=== PATIENT | male | born 1995 | race Hispanic/Latino ===

== ENCOUNTER 2016-11-26 23:47 | Emergency (ER) | payer SELFPAY ==
[~2016-11-26] VITALS: Ht 170.2 cm; Wt 68.0 kg
[~2016-11-26 23:47] MED LIST: NS IV 1000 ML 2,000 ML ONE
--- NOTE | 2016-11-27 00:16 | ED EENT ---
History of Present Illness General Stated Complaint: CHEMICAL IN EYE Source: patient, family Exam Limitations: language barrier ([place]an) History of Present Illness Time seen by provider: 00:09 Initial Comments Patient presents to ER by private conveyance and has a family member giving his Scottish interpretation. Approximately half an hour ago he set a jug of household bleach down on the floor and had the catheter off and splashed straight up and sprayed several droplets in that his eye on both sides. Left eye more than right eye. He is having a burning sensation but no blurry vision or double vision. He has not done anything for to come straight to the ER. Allergies and Home Medications Allergies Coded Allergies: No Known Drug Allergies (Unverified , 11/27/16) Review of Systems Constitutional: No chills, No diaphoresis, No malaise Eyes: Denies Blindness, Denies Blurred Vision, Denies Drainage, Denies Foreign Body Sensation, Pain, Denies Photophobia Ears: See HPI, Denies Dizziness, Denies Previous Injury Nose: denies epistaxis, denies pain Mouth: denies clots, denies loose teeth Throat: denies pain, denies swelling, denies discharge Respiratory: No cough, No short of breath Cardiovascular: No chest pain, No palpitations Gastrointestinal: No abdominal pain, No constipation, No diarrhea, No nausea Musculoskeletal: No back pain, No joint pain Skin: No pruritus, No rash Neurological: Denies Headache, Denies Numbness, Denies Paresthesia, Denies Pre- Existing Deficit Past Wbffyne-Sjdksf-Chaije Hx Patient Social History Recent Foreign Travel: No Contact w/Someone Who Travel: No Visual Acuity : Eye Location: Bilaterally Vision Acuity Degree: 20/20 Physical Exam Vital Signs Vital Sign - Last 12Hours 11/26/16 23:55 Temp 97.8 Pulse 127 Resp 20 B/P (MAP) 133/73 Pulse Ox 100 O2 Delivery Room Air O2 Flow Rate 97.00 General Appearance: WD/WN, mild distress Eyes: bilateral eye PERRL, bilateral eye EOMI, bilateral eye lid inflammation, bilateral eye other (bilateral conjunctival erythema and injection. Wood's lamp with fluoresceins stain negative for ulceration, foreign bodies or dendritic patterns.) Ears: bilateral ear auricle normal, bilateral ear canal normal, bilateral ear TM normal Nose: normal inspection, No active bleeding, No discharge Neck: non-tender, full range of motion, supple, normal inspection Cardiovascular: normal peripheral pulses, regular rate, rhythm Respiratory: lungs clear, normal breath sounds Gastrointestinal: non tender, soft Neurologic/Psychiatric: alert, oriented x 3 Skin: normal color, warm/dry Progress/Results/Core Measures Results/Orders My Orders Orders - NIKKI ROMERO Iv 1000 Ml (Sodium Chloride 0.9%) (11/26/16 23:47) Medications Given in ED Current Medications Medications Dose Ordered Sig/Marty Route Start Time Stop Time Status Last Admin Dose Admin Sodium Chloride 2,000 ml @ ud STK-MED ONCE .ROUTE 11/26/16 23:47 11/26/16 23:54 DC 11/27/16 00:01 2,000 MLS/HR Vital Signs/I&O Vital Sign - Last 12Hours 11/26/16 11/26/16 23:55 23:55 Temp 97.8 Pulse 127 Resp 20 B/P (MAP) 133/73 Pulse Ox 100 O2 Delivery Room Air Room Air O2 Flow Rate 97.00 Consults Consults : Consults Notes [facility] poison control recommends that we flushed his eyes with copious amounts of normal saline. After he is done that and allow him to sit for about 15 minutes and checked the pH. If it is approaching normal then we can let him go. If it is still off that we should re-flush copiously and then let him set 15 more minutes and rechecked him. They will call back to check on him in the low back. 0115: Left a voicemail to update poison control of the results. PH was 7.0 per both eyes. Departure Impression Impression: Primary Impression: Alkaline chemical burn of left eye Additional Impression: Alkaline chemical burn of right eye Disposition: 01 HOME, SELF-CARE Condition: Stable Departure-Patient Inst. Decision time for Depature: 01:14 Referrals: NO,LOCAL PHYSICIAN (PCP) Primary Care Physician Patient Instructions: Chemical Eye Injury (DC) Add. Discharge Instructions: If you're having any further irritation to your eyes you can get some contact lens solution and rinsed them out copiously. Follow up with your primary care physician or an eye doctor within the next week. If you have new or worsening symptoms or loss of vision you should return to the ER. The numbing medicine placed in your eyes will wear off in approximately one hour. You may see some yellow tears from the stain that we put in your eyes to check for injury for the next day. NIKKI ROMERO Nov 27, 2016 00:16
[2016-11-27] MEDS ORDERED: TETRACAINE 0.5% OPHTH SOLN 4 ML BTL (SINGLE DOSE ONLY) OP ONE (01:00)
[2016-11-27] MEDS ORDERED: FLUORESCEIN (FLUOR-I-STRIPS) 1 MG STRP OU ONE (01:00)
[2016-11-27 01:17] VITALS: BP 133/73
[2016-11-27] MEDS ORDERED: TETRACAINE 0.5% OPHTH SOLN 4 ML BTL (SINGLE DOSE ONLY) ONE (06:57)
== END 2016-11-27 01:17 | disposition home or self-care (01) ==
LOC: ER 23:51
DX: T54.94XA Toxic effect of unspecified corrosive substance, undetermined, initial encounter (principal); T26.52XA Corrosion of left eyelid and periocular area, initial encounter; T26.51XA Corrosion of right eyelid and periocular area, initial encounter; T26.62XA Corrosion of cornea and conjunctival sac, left eye, initial encounter; T26.61XA Corrosion of cornea and conjunctival sac, right eye, initial encounter; T32.0 Corrosions involving less than 10% of body surface
CPT/HCPCS: 96360; 99283